=== PATIENT | male | born 2005 | race African-American/Black ===

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

== ENCOUNTER 2023-08-21 13:52 | Emergency (ER) | payer SELFPAY ==
[2023-08-21 14:28] VITALS: BP 122/79; PULSE 68; RESP 18; TEMP 36.1; O2SAT 99; BMI 25.1
[2023-08-21 16:14] VITALS: BP 129/79; PULSE 68; RESP 14; TEMP 36.8; O2SAT 98
--- NOTE | 2023-08-21 16:38 | ED.EXTPRO ---
HPI - Extremity Problem General Chief complaint: Extremity Injury, Upper Stated complaint: R hand fracture ? Time Seen by Provider: 08/21/23 15:36 Source: patient Mode of arrival: ambulatory Limitations: no limitations History of Present Illness HPI Narrative: Patient is a 18-year-old male presents emergency department for evaluation of pain and swelling to the right hand. Reports a fall landing on the right hand while playing basketball. This happened today prior to arrival. Denies numbness or tingling to the fingers. Denies any known prior injury to the hand. Related Data Allergies Allergy/AdvReac Type Severity Reaction Status Date / Time No Known Allergies Allergy Verified 08/21/23 14:28 Review of Systems Review of Systems: Yes all other systems are reviewed and are negative PMFSH Past Medical History Attestation statement: The following information was validated with the patient. Source: old records reviewed Onset Date is defined in the Problem List Problems that require an onset date and time if occurred within 24 hrs of arrival to the ED Aortic Dissection and Rupture; Neurologic impairment; Cardiopulmonary Arrest; Endotracheal Intubation; Insertion or Replacement of Mechanical Circulatory Assist Device Social History Social History Advance Directives: No Advance Directives Information Provided: No Physical Exam Vital Signs: Vital Signs: Last Vital Signs Temp 98.3 F 08/21/23 16:14 Pulse 68 08/21/23 16:14 Resp 14 08/21/23 16:14 BP 129/79 08/21/23 16:14 Pulse Ox 98 08/21/23 16:14 O2 Del Method Room Air 08/21/23 16:14 BMI result Body Mass Index 25.1 Appearance: Alert.?Oriented to person, place and time. No acute distress.?Normal affect. Neck: Normal inspection.? Neck supple.?? CVS: Heart sounds normal. Normal heart rate and rhythm.? Pulses normal.?? Respiratory: No respiratory distress.? Lung sounds clear to auscultation bilaterally?? Skin: Skin warm and dry.? Normal skin color.? Extremities: Localized swelling tenderness upon palpation over the palmar and dorsal aspect of the hand. Full AROM to the wrist. Decreased extension to the digits. Neurovascularly intact distally. Neuro: Moves all extremities spontaneously. Sensation intact bilaterally. Ambulates with normal steady gait. Medical Decision Making Medical Decision Making [facility] Narrative: Patient is a 18-year-old male presents emergency department for evaluation of traumatic right hand pain as per HPI. Overall he is well appearing. Has full AROM to the wrist. extremity is neurovascularly intact distally. after evaluation of the patient I had reviewed the XR imaging obtained which indicated spiral fractures of the midshaft of the right 3rd and 4th metacarpal bones with slight angulation of the 3rd metacarpal. Orthopedics was consulted, spoke with Neel VÁSQUEZ who advised splinting in position of safety. upon presenting back to the room to inform patient of these findings he was not present in the room. Respirations her checked inpatient not present. He was not in the waiting room. Attempted to contact patient by phone, unable to the voicemail for call back. When I attempted to contact his primary contact, mother, Jace Kelley phone number provided was her contact information. Nursing staff attempting to contact [employer] to advised patient to call back the emergency department and/or return. Differential Diagnosis Differential Diagnoses: The differential diagnosis associated with the presentation includes ( Fracture, dislocation, sprain, neurovascular compromise.) Consult Healthcare Provider Management of the patient was discussed with: Sales Engineer Account Manager ( See narrative above) Independent Interpretation I performed an independent interpretation of an: Plain X-Ray ( I personally interpreted XR imaging and agree with radiologist impression.) Radiology Impression Discussion of test interpretation with radiology: I have reviewed the radiologist's reading. Radiologist Impression: XR/XR hand wrist RT IMPRESSION: Spiral fractures of the mid shafts of the right third and fourth metacarpal bones with slight angulation of the third metacarpal. Prescription Management I considered prescription management with: Pain Medication ( Acetaminophen/ibuprofen) Discharge Plan Discharge Clinical Impression: Fracture, metacarpal shaft Qualifiers: Encounter type: initial encounter Metacarpal bone: third Fracture type: closed Laterality: right Patient Disposition: Elopement Instructions: Hand Fracture (ED) Referrals: Saloni Esposito MD [Physician] -
--- NOTE | 2023-08-21 17:36 | PC.NURSE ---
this nurse entered pt room to measure arm for splinting pt was not in exam room. checked ED bathrooms, and WR. attempted to call pt t# in chart- message received subscriber cannot be reached at this time. security to review video footage to determine if pt eloped from dept
--- NOTE | 2023-08-21 18:18 | PC.NURSE ---
spoke with customer service security officer Riuz, notified of pt has injury that req splinting. Officer verbalized understanding and once contact is mADE with pt, he will be instructed to return to ED.
== END 2023-08-21 18:20 | disposition left against medical advice (07) ==
PROVIDERS: Emergency Provider Emergency Medicine
DX: S62.322A Displaced fracture of shaft of third metacarpal bone, right hand, initial encounter for closed fracture (principal); S62.324A Displaced fracture of shaft of fourth metacarpal bone, right hand, initial encounter for closed fracture; W01.10XA Fall on same level from slipping, tripping and stumbling with subsequent striking against unspecified object, initial encounter; Y93.67 Activity, basketball; Y92.310 Basketball court as the place of occurrence of the external cause; Y99.9 Unspecified external cause status
CPT/HCPCS: 73110; 73130; 99283